=== PATIENT | female | born 1970 | race Native Hawaiian/Other Pacific Islander ===

== ENCOUNTER 2017-04-30 09:11 | Emergency (ER) | payer OTHER ==
[~2017-04-30] VITALS: Ht 157.5 cm; Wt 79.5 kg
[2017-04-30 09:20] VITALS: BP 158/91; PULSE 91; RESP 18; O2SAT 97
--- NOTE | 2017-04-30 09:23 | ED.REPORT ---
HPI-Chest Pain 40 and Over Date of Service Apr 30, 2017 ED Provider: Sebastian Dow DO Pt is a 47 y/o female w/ a hx of VSD, presenting to the ED c/o intermittent rapid heart palpitations onset about 2 days ago. During these episodes she experiences associated chest tightness, shortness of breath, pleuritic back pain , and left arm paresthesias. She denies cough, sputum, nausea, vomiting, edema. Her only symptom at current time is shortness of breath. Symptoms are not exacerbated by exertion. Her medications are estrogen and vitamins. She has experienced this in the past and was told it was likely caused by anxiety. She has also been experiencing more stress at work and believes it may be caused by anxiety. She believes she had a stress test "a long time ago" but is unsure. Nursing Notes Stated Complaint: HEART PALPATATIONS Chief Complaint: Chest Pain Nursing Notes Reviewed: Yes Allergies: Coded Allergies: codeine (Verified Allergy, Unknown, 04/30/17) General Time Seen by MD: 09:22 Chief Complaint Other (palpitations) Hx Obtained From: Patient Arrived By: Walk-in Sudden in Onset?: No Onset Occurred: Yesterday Symptom Duration: Intermittent Location: : Substernal Quality: Pressure Radiation: : Back Severity: Current: No pain currently Severity: Maximum: Moderate Similar Sx Previous: Yes Risk Factors PERC Rule Exogenous estrogen use PERC Result: PERC rule not satisfied Past Medical History Past Medical History Denies Known heart murmur Ventricular septal defect Past Surgical History Tubal ligation @ age 26 Smoking History Never Smoker Social History Alcohol Use: "Social" Drug Use: Denies drug use Ambulatory Status Independent Review of Systems Respiratory: Reports: Pleuritic pain, Shortness of breath, Denies: Non-productive cough Cardiovascular: Reports: Chest pain, Palpitations Psychiatric: Reports: Anxiety Complete sys rev & neg: except as marked. Physical Exam Initial Vital Signs Vital Signs (First) Date Time Temp Pulse Resp B/P Pulse Ox O2 Delivery O2 Flow Rate FiO2 04/30/17 09:20 36.8 91 18 158/91 97 Room Air Initial VS: Reviewed, Vital signs normal Head / Eyes: Atraumatic, Normocephalic ENT: Mucous membranes moist, Conjunctiva normal Neck: Supple, Full range of motion Extremities: Vascular intact, Neuro intact Skin: Warm, Dry, No cyanosis Neurologic: Alert, Oriented, Nonfocal General/Constitutional: Awake, Alert, No acute distress, Cooperative, Not toxic appearing Behavior: Positive: Anxious Respiratory / Chest: Breath sounds NL, Breath sounds = bilat, No respiratory distress, No rales, No rhonchi, No wheezing Cardiovascular: Heart rate NL, Regular rhythm, Peripheral circulation NL, Pulses = bilaterally Heart Sounds / Murmur: Positive: Systolic murmur present.. (III/) Abdomen: Soft, Non-tender Psychiatric: Mood NL Abnormal Mood/Affect: Positive: Anxious Interpretation & Diagnostics Lab Results Interpretation Result Diagram: 04/30/17 0940 04/30/17 0940 Test 04/30/17 09:40 04/30/17 10:18 White Blood Count 6.9th/mm3 (3.8-10.1) Red Blood Count 4.75mil/mm3 (3.90-5.20) Hemoglobin 13.6g/dL (12.0-15.6) Hematocrit 40.6% (35.0-46.0) Mean Corpuscular Volume 85.5fL (81-100) Mean Corpuscular Hemoglobin 28.6pg (27.0-35.0) Mean Corpuscular Hemoglobin Concent 33.5% (32.0-37.0) Red Cell Distribution Width 13.9% (12.3-15.4) Platelet Count 308bil/L (150-400) Neutrophils (%) (Auto) 44.1% (40-74) Lymphocytes (%) (Auto) 47.8% (14-46) Monocytes (%) (Auto) 5.2% (4-12) Eosinophils (%) (Auto) 2.2% (0-5) Basophils (%) (Auto) 0.6% (0-3) D-Dimer 0.28mg/L FEU (<0.50) Sodium Level 139mEq/L (134-144) Potassium Level 4.0mEq/L (3.5-5.2) Chloride Level 102mEq/L (97-108) Carbon Dioxide Level 21mmol/L (18-29) Blood Urea Nitrogen 10mg/dL (6-24) Creatinine 0.49mg/dL (0.57-1.00) Estimat Glomerular Filtration Rate 193mL/min (>59) Glucose Level 109mg/dL (60-99) Calcium Level 9.1mg/dL (8.5-10.1) Magnesium Level 2.1mg/dL (1.6-2.6) Total Bilirubin 0.3mg/dL (0.0-1.2) Aspartate Amino Transf (AST/SGOT) 18U/L (0-50) Alanine Aminotransferase (ALT/SGPT) 12U/L (0-32) Alkaline Phosphatase 56U/L (25-150) Troponin T 0.010ug/L (0.0-0.011) Total Protein 7.2g/dL (6.4-8.4) Albumin 4.2g/dL (3.4-5.0) Hold Urine Received (Received) ECG Interpretation ECG Interpretation: Sinus rhythm rate 81 LVH Time: 09:38 Interpreted by: ED physician X-Ray Chest Interpretation Chest Xray Interpretation: IMPRESSION: Cardiomegaly. No acute pulmonary findings. Dictated by: Haydee Conn M.D. on 04/30/2017 at 9:44 Approved by: Haydee Conn M.D. on 04/30/2017 at 9:44 View: Portable, 1 view Interpretation / Wet Read by: Interpret - Radiologist Re-Eval/Medical Decision Med Decision/Clinical Course Heart score of 3, symptoms do not sound consistent with acute coronary syndrome pulmonary embolism or aortic dissection. Symptoms resolved after Ativan and Tylenol and aspirin. Recommend close outpatient follow-up for further cardiac testing however no indication that this is an acute [place]. Return in follow-up precautions given Time of Eval: 10:52 Re-Evaluation/Progress Note: Pt rechecked. Symptoms resolved after Ativan and Tylenol. Discussed lab and imaging results. Informed pt of plan for discharge. Pt understands and agrees with plan for discharge. F/U instructions and RTER warnings given. All questions addressed. Counseled Regarding: Diagnosis, Lab results, Need for follow-up, When/why to return to ED Discharge & Departure Primary Impression: Chest pain Chest pain type: unspecified Qualified Code: R07.9 - Chest pain, unspecified Additional Impressions: Palpitations History of ventricular septal defect Disposition: Home Discharge Condition All VS Reviewed: Yes Condition: Stable Patient Instructions: Chest Pain (ED), Palpitations (ED) Additional Instructions: No dangerous cause for your chest pain and other symptoms was identified. Begin taking 81 mg aspirin each day. Return to the ER if you develop concerning signs or symptoms of heart attack such as chest pain, severe trouble breathing or any other concerns. Call your doctor today for close follow-up and further evaluation of your heart. Referrals: Misty Mcarthur (PCP) Scribe Attestation Portions of this note were transcribed by Harvinder Rodarte. I, Dr. Dow personally performed the history, physical exam and medical decision-making; I reviewed and confirmed the accuracy of the information in the transcribed note. copies to: Misty Mcarthur Timothy S DO Apr 30, 2017 09:23 HARVINDER RODARTE Apr 30, 2017 09:28
[2017-04-30] MEDS ORDERED: LORazepam 1 mg Tablet PO ONE (09:40)
--- NOTE | 2017-04-30 09:46 | DRSVH ---
PROCEDURE: X-RAY CHEST ONE VIEW, PORTABLE ([id number]) INDICATIONS: PAIN TECHNIQUE: One view of the chest was acquired. COMPARISON: [facility], CR, XR CHEST 2VW, 09/27/2016, 16:01. FINDINGS: Surgical changes and devices: None. Lungs and pleura: No pleural effusions or pneumothorax. Lungs are clear. Mediastinum: Mediastinal contours appear normal. Heart size is enlarged. Bones and chest wall: No suspicious bony lesions. Overlying soft tissues appear unremarkable. IMPRESSION: Cardiomegaly. No acute pulmonary findings. Dictated by: Haydee Conn M.D. on 04/30/2017 at 9:44 Approved by: Haydee Conn M.D. on 04/30/2017 at 9:44
[2017-04-30 10:12] VITALS: BP 137/82; PULSE 79; RESP 12; O2SAT 98
[2017-04-30 10:16] LABS: BASOPHILS % (AUTO) 0.6 % (0-3); EOSINOPHILS % (AUTO) 2.2 % (0-5); MONOCYTES % (AUTO) 5.2 % (4-12); Mean Corpuscular Hemoglobin 28.6 pg (27.0-35.0); Mean Corpuscular Volume 85.5 fL (81-100); NEUTROPHILS % (AUTO) 44.1 % (40-74); Platelet Count 308 bil/L (150-400)
[2017-04-30 10:36] LABS: TROPONIN T 0.01 ug/L (0.0-0.011)
[2017-04-30 10:47] LABS: Magnesium 2.1 mg/dL (1.6-2.6)
[2017-04-30 11:19] VITALS: BP 137/82; PULSE 79; RESP 12; O2SAT 98
== END 2017-04-30 11:19 | disposition home or self-care (01) ==
LOC: SED 09:11
DX: R07.9 Chest pain, unspecified (principal); R00.2 Palpitations; Z88.5 Allergy status to narcotic agent